=== PATIENT | male | born 1990 | race Caucasian/White ===

== ENCOUNTER 2022-09-30 10:03 | Emergency (ER) | payer SELFPAY ==
[2022-09-30 10:11] VITALS: BP 142/95; PULSE 97; RESP 20; TEMP 98.7; BMI 29.2
[2022-09-30 11:02] LABS: BASO % 0.6 % (0-2.0); EOS % 0.9 % (0-4.5); HEMATOCRIT 43.8 % (35.4-49); HEMOGLOBIN 14.3 GM/dL (11.7-16.9); LYMPH % 32.8 % (8-40); MCH 28.7 pg (25.7-33.7); MCHC 32.8 g/dl (32.0-35.9); MEAN CELL VOLUME 87.7 fl (80-96); MEAN PLT VOLUME 8.3 fl (7.5-11.1); MONO % 8.4 % (3.8-10.2); NEUT % 57.3 % (42.8-82.8); PLATELET COUNT 259 10^3/uL (134-434); RBC 4.99 M/mm3 (4.00-5.60); RDW 12.9 % (11.9-15.9); WHITE BLOOD COUNT 6.1 K/mm3 (4.0-10.0)
[2022-09-30 11:19] LABS: CHLORIDE 107 mmol/L (98-107); SODIUM 143 mmol/L (136-145)
[2022-09-30 11:21] LABS: CALCIUM 9.3 mg/dL (8.5-10.1)
[2022-09-30 11:22] LABS: ALBUMIN 3.8 g/dl (3.4-5.0); ANION GAP 9 MMOL/L (8-16); BLOOD UREA NITROGEN 23.3 mg/dL (7-18); CO2 26 mmol/L (21-32); GLUCOSE,RANDOM 102 mg/dL (74-106)
[2022-09-30 11:25] LABS: CREATININE 1.1 mg/dL (0.55-1.3); SGOT/AST 22 U/L (15-37); SGPT/ALT 59 U/L (13-61)
[2022-09-30 11:26] LABS: TOT PROT 7.1 g/dl (6.4-8.2)
[2022-09-30 11:27] LABS: BILIRUBIN,TOTAL 0.4 mg/dL (0.2-1)
[2022-09-30 11:28] LABS: ALK PHOS 41 U/L (45-117)
== END 2022-09-30 12:13 | disposition home or self-care (01) ==
LOC: JER 10:03
DX: R07.89 Other chest pain (principal)
CPT/HCPCS: 36415; 80053; 84484; 85025; 93005; 93010; 99284-25